=== PATIENT | male | born 1960 | race Caucasian/White ===

== ENCOUNTER 2020-12-12 11:43 | Emergency (ER) | payer BC ==
[2020-12-12 13:04] LABS: Basophils % 0.3 % (0-1.3); Hematocrit 43.6 % (39.6-49.0); Lymphocytes % 10.5 % (15.3-44.8); MPV 7.4 fL (7.6-11.3); RBC Red Blood Cell Count 4.93 M/uL (4.33-5.43)
[2020-12-12 13:24] LABS: BUN Blood Urea Nitrogen 17 mg/dL (7-18); Bicarbonate 26 mmol/L (21-32); Glucose Level 113 mg/dL (74-106); NT PRO-BNP 27 pg/mL (<125); Potassium 3.6 mmol/L (3.5-5.1); Sodium Level 141 mmol/L (136-145); Troponin (Emerg Dept Use Only) < 0.02 ng/mL (0.0-0.045)
--- NOTE | 2020-12-12 14:02 | EDPHYS ---
Physician Documentation [facility] Name: Rodney Victoria Age: 60 yrs Sex: Male : 1960 Arrival Date: 12/12/2020 Time: 11:47 Bed 25 Private MD: ED Physician Antolin Bond HPI: 12/12 13:47 This 60 yrs old Male presents to ER via EMS with complaints of syncope. rn 13:47 The patient has experienced syncope. Onset: The symptoms/episode began/occurred just rn prior to arrival. Duration: This was a single episode. Context: occurred at an office, occurred while the patient was at rest, Just prior to the episode the patient experienced lightheadedness. Associated injury: The patient did not suffer any apparent associated injury. Associated signs and symptoms: Pertinent positives: lightheadedness, Pertinent negatives: abdominal pain, chest pain, headache, seizure, shortness of breath. Current symptoms: Currently, the patient is not experiencing any symptoms. The patient has experienced similar episodes in the past. The patient has been recently seen by a physician:. Patient reports was status post prostate biopsy at Dr. Fernández office today. States was not given any systemic medication noted with only local lidocaine. Patient states almost every time he has had a procedure done in the office he has had a syncopal episode afterwards, told was vasovagal response. Today he was being monitored after the procedure in a seated position when felt lightheaded and felt the same thing about to happen, had a syncopal episode and woke up later. No seizure-like activity. Now back to baseline without any complaints. States had a recent cardiac work-up that was negative including negative stress test and this feels identical to multiple other vasovagal responses.. Historical: - Allergies: 11:54 No Known Allergies; vg1 - Home Meds: 11:54 losartan-hydrochlorothiazide oral [Active]; Protonix Oral [Active]; Cipro Oral vg1 [Active]; Flomax Oral [Active]; - PMHx: 11:54 Hypercholesterolemia; Hypertensive disorder; GERD; vg1 - PSHx: 11:54 LEEANNE Cornea; vg1 - Immunization history:: Adult Immunizations up to date, Client reports receiving the Natalio \T\ Natalio single-dose vaccine. - Social history:: Smoking status: Patient denies any tobacco usage or history of. - Family history:: not pertinent. - Hospitalizations: : No recent hospitalization is reported. ROS: 13:47 Constitutional: Negative for fever, chills, and weight loss, Eyes: Negative for injury, rn pain, redness, and discharge, Neck: Negative for injury, pain, and swelling, Cardiovascular: Negative for chest pain, palpitations, and edema, Respiratory: Negative for shortness of breath, cough, wheezing, and pleuritic chest pain, Abdomen/GI: Negative for abdominal pain, nausea, vomiting, diarrhea, and constipation, Back: Negative for injury and pain, MS/Extremity: Negative for injury and deformity, Skin: Negative for injury, rash, and discoloration, Neuro: Negative for headache, weakness, numbness, tingling, and seizure. Exam: 13:47 Constitutional: This is a well developed, well nourished patient who is awake, alert, rn and in no acute distress. Head/Face: Normocephalic, atraumatic. Eyes: Periorbital areas with no swelling, redness, or edema. Cardiovascular: Regular rate and rhythm. No pulse deficits. Respiratory: No increased work of breathing, no retractions or nasal flaring. Abdomen/GI: Soft, non-tender Skin: Warm, dry with normal turgor. Normal color with no rashes, no lesions, and no evidence of cellulitis. MS/ Extremity: Pulses equal, no cyanosis. Neurovascular intact. Full, normal range of motion. Equal circumference. Neuro: Awake and alert, GCS 15, oriented to person, place, time, and situation. Cranial nerves II-XII grossly intact. Motor strength 5/5 in all extremities. Sensory grossly intact. Cerebellar exam normal. 13:58 ECG was reviewed by the Attending Physician. rn Vital Signs: 11:43 BP 130 / 92; Pulse 65; Resp 12; Temp 97.6; Pulse Ox 100% ; Weight 86.18 kg; Height 5 vg1 ft. 5 in. (165.10 cm); Pain 0/10; 12:30 BP 123 / 95; Pulse 74; Resp 15; Pulse Ox 100% ; vg1 13:30 BP 126 / 83; Pulse 69; Resp 12; Pulse Ox 100% ; vg1 11:43 Body Mass Index 31.62 (86.18 kg, 165.10 cm) vg1 MDM: 11:59 Patient medically screened. rn 13:58 Differential Diagnosis: cardiac arrhythmia, idiopathic syncope, vasovagal episode. Data rn reviewed: vital signs, nurses notes, lab test result(s), EKG, and as a result, I will discharge patient. Data interpreted: residential monitor: rate is 69 beats/min, rhythm is normal sinus rhythm, regular, with no ectopy, Interpretation: normal rate, normal rhythm, Pulse oximetry: on room air is 100 %. Interpretation: normal. Counseling: I had a detailed discussion with the patient and/or guardian regarding: the historical points, exam findings, and any diagnostic results supporting the discharge/admit diagnosis, lab results, the need for outpatient follow up, to return to the emergency department if symptoms worsen or persist or if there are any questions or concerns that arise at home. Response to treatment: the patient's symptoms have markedly improved after treatment, the patient's symptoms have resolved after treatment, the patient's condition has returned to base line, the patient is now symptom free, and as a result, I will discharge patient. Special discussion: I discussed with the patient/guardian in detail that at this point there is no indication for admission to the hospital. It is understood, however, that if the symptoms persist or worsen the patient needs to return immediately for re-evaluation. 13:58 ED course: Back to baseline, has had multiple vasovagal episodes in the past following corner cutter. No acute findings here on ECG or blood work. Stable vital signs. Will DC home with return precautions.. 12/12 12:08 Order name: CBC with Diff; Complete Time: 13:29 rn 12/12 12:08 Order name: Basic Metabolic Panel; Complete Time: 13:29 rn 12/12 12:08 Order name: IV Start; Complete Time: 12:55 rn 12/12 12:08 Order name: EKG; Complete Time: 12:09 rn 12/12 12:08 Order name: Troponin (emerg Dept Use Only); Complete Time: 13:29 rn 12/12 12:08 Order name: BNP; Complete Time: 13:29 rn 12/12 12:08 Order name: EKG - Nurse/Tech; Complete Time: 13:27 rn 12/12 12:08 Order name: Cardiac monitoring; Complete Time: 12:16 rn 12/12 12:08 Order name: O2 Sat Monitoring; Complete Time: 12:16 rn EC:58 Rate is 68 beats/min. Rhythm is regular. QRS [place] is Normal. DC interval is normal. QRS rn interval is normal. QT interval is normal. No Q waves. T waves are Normal. No ST changes noted. Clinical impression: Normal ECG. Interpreted by me. Reviewed by me. Administered Medications: No medications were administered Disposition Summary: 12/12/20 14:01 Discharge Ordered Location: Home rn Problem: new rn Symptoms: are resolved rn Condition: Stable rn Diagnosis - Vasovagal syncope rn Followup: rn - With: Private Physician - When: As needed - Reason: Recheck today's complaints, Re-evaluation by your physician Discharge Instructions: - Discharge Summary Sheet rn - Syncope rn Forms: - Medication Reconciliation Form rn - Thank You Letter rn - Antibiotic pattern assembler - Prescription Opioid Use rn Signatures: Dispatcher [employer] Antolin Cordero MD MD rn Garcia, Victoria, RN RN vg1
--- NOTE | 2020-12-12 14:02 | ER ---
Nurse's Notes [facility] Name: Rodney Victoria Age: 60 yrs Sex: Male : 1960 Arrival Date: 12/12/2020 Time: 11:47 Bed 25 Private MD: Diagnosis: Vasovagal syncope Presentation: 12/12 11:43 Chief complaint: EMS states: Pt had a prostate biopsy today at Dr Fernández office. About vg1 an hour after procedure pt became diaphoretic, dizzy and passed out for a couple of minutes. Pt stated this wasn't the first time this has happened. Pt denies pain at this time, but states pressure near Left groin, stated 'feels like I need to urinate'. 11:43 Coronavirus screen: Vaccine status: Patient reports receiving the 1st dose of the Covid vg1 vaccine. Client denies travel out of the [place] in the last 14 days. Ebola Screen: Patient negative for fever greater than or equal to 101.5 degrees Fahrenheit, and additional compatible Ebola Virus Disease symptoms. Initial Sepsis Screen: Does the patient meet any 2 criteria? No. Patient's initial sepsis screen is negative. Does the patient have a suspected source of infection? No. Patient's initial sepsis screen is negative. Risk Assessment: Do you want to hurt yourself or someone else? Patient reports no desire to harm self or others. Onset of symptoms was December 12, 2020. 11:43 Method Of Arrival: EMS: [facility] vg1 11:43 Acuity: OFE 3 vg1 Triage Assessment: 11:54 General: Appears in no apparent distress. comfortable, Behavior is calm, cooperative. vg1 Pain: Complains of pain in pelvis Pain currently is 0 out of 10 on a pain scale. EENT: No signs and/or symptoms were reported regarding the EENT system. Neuro: Level of Consciousness is awake, alert, obeys commands, Oriented to person, place, time, situation. Cardiovascular: Patient's skin is warm and dry. Respiratory: Airway is patent Respiratory effort is even, unlabored. GI: No signs and/or symptoms were reported involving the gastrointestinal system. : Reports inability to void, pressure Denies pain. Derm: Skin is intact, is healthy with good turgor. Musculoskeletal: Circulation, motion, and sensation intact. Historical: - Allergies: 11:54 No Known Allergies; vg1 - Home Meds: 11:54 losartan-hydrochlorothiazide oral [Active]; Protonix Oral [Active]; Cipro Oral vg1 [Active]; Flomax Oral [Active]; - PMHx: 11:54 Hypercholesterolemia; Hypertensive disorder; GERD; vg1 - PSHx: 11:54 LEEANNE Cornea; vg1 - Immunization history:: Adult Immunizations up to date, Client reports receiving the Natalio \T\ Natalio single-dose vaccine. - Social history:: Smoking status: Patient denies any tobacco usage or history of. - Family history:: not pertinent. - Hospitalizations: : No recent hospitalization is reported. Screenin:00 Abuse screen: Denies threats or abuse. Nutritional screening: No deficits noted. vg1 Tuberculosis screening: No symptoms or risk factors identified. Fall Risk No fall in past 12 months (0 pts). No secondary diagnosis (0 pts). IV access (20 points). Ambulatory Aid- None/Bed Rest/Nurse Assist (0 pts). Gait- Normal/Bed Rest/Wheelchair (0 pts) Mental Status- Oriented to own ability (0 pts). Total Hartman Fall Scale indicates No Risk (0-24 pts). Assessment: 12:00 Reassessment: SEE TRIAGE. vg1 12:56 Reassessment: Patient appears in no apparent distress at this time. No changes from vg1 previously documented assessment. Patient and/or family updated on plan of care and expected duration. Pain level reassessed. Patient is alert, oriented x 3, equal unlabored respirations, skin warm/dry/pink. 13:55 Reassessment: Patient appears in no apparent distress at this time. No changes from vg1 previously documented assessment. Patient and/or family updated on plan of care and expected duration. Pain level reassessed. Patient is alert, oriented x 3, equal unlabored respirations, skin warm/dry/pink. Vital Signs: 11:43 BP 130 / 92; Pulse 65; Resp 12; Temp 97.6; Pulse Ox 100% ; Weight 86.18 kg; Height 5 vg1 ft. 5 in. (165.10 cm); Pain 0/10; 12:30 BP 123 / 95; Pulse 74; Resp 15; Pulse Ox 100% ; vg1 13:30 BP 126 / 83; Pulse 69; Resp 12; Pulse Ox 100% ; vg1 11:43 Body Mass Index 31.62 (86.18 kg, 165.10 cm) vg1 ED Course: 11:47 Patient arrived in ED. em1 11:51 Lisa Guerrero, COREY is Primary Nurse. vg1 11:54 Triage completed. vg1 11:59 Antolin Bond MD is Attending Physician. rn 12:00 Patient has correct armband on for positive identification. Placed in gown. Bed in low vg1 position. Call light in reach. Side rails up X 1. Adult w/ patient. 12:00 No provider procedures requiring assistance completed. vg1 12:01 Arm band placed on. vg1 12:56 Initial lab(s) drawn, by me, sent to lab. Inserted saline lock: 22 gauge in right vg1 antecubital area, using aseptic technique. Blood collected. 14:35 IV discontinued, intact, bleeding controlled, No redness/swelling at site. Pressure vg1 dressing applied. Administered Medications: No medications were administered Outcome: 14:01 Discharge ordered by . rn 14:35 Discharged to home ambulatory, with family. vg1 14:35 Condition: stable 14:35 Discharge instructions given to patient, family, Instructed on discharge instructions, follow up and referral plans. Demonstrated understanding of instructions, follow-up care. 14:35 Patient left the ED. vg1 Signatures: Antolin Bond MD MD rn Martinez, Eric em1 Lisa Guerrero RN RN vg1
[2020-12-12 14:44] VITALS: TEMP 97.6; O2SAT 100
[2020-12-12 14:46] VITALS: BP 126/83
[2020-12-12] MEDS ORDERED: NA CHLORIDE 0.9% 500 ML ONE (16:31)
--- OUTSIDE RECORDS SUMMARY | 2020-12-21 11:39 | XMS REPORT | Continuity of Care Document ---
:1960 Author Organization [facility] t Address [address] [place] [address] Care Team Providers Name Role Phone Hunter VILLA Attending Clinician Payers Payer Name Policy Type Policy Number Effective Date Expiration Date S ource Problems Condition Condition Condition Status Onset Resolution Last Treating Co mments Source Name Details Category Date Date Treatment Clinician Date No known No known Disease [facility] active active College problems problems of Medicin e Allergies, Adverse Reactions, Alerts This patient has no known allergies or adverse reactions. Social History Social Habit Start Date Stop Date Quantity Comments Source Alcohol intake [facility] lege [facility] Alcohol Comment social [facility] Co llege [facility] Sex Assigned At [facility] Smoking Status Start Date Stop Date Source Former smoker 2018-11-18 00:00:00 2018-11-18 00:00:00 [facility] Ordered Filled Start Stop Current Ordering Indication Dosage Frequency Signature Comments Components Source Medication Medication Date Date Medication? Clinician (SIG) Name Name Atorvastati 2018-02 Yes Take by Ever pagan n Calcium 0-11 mouth. Enigma (LIPITOR 18:01: of OR) 45 Medicin e Pantoprazol 2018-02 Yes Take by Ever brownor e Sodium 0-11 mouth. Enigma (PROTONIX 18:01: of OR) 45 Medicin e losartan-hy 2018-02 Yes 1{tbl} Take 1 Tab [facility] drochloroth 0-11 by mouth Reinier ege iazide 18:01: daily. of (HYZAAR) 45 Medicin 50-12.5 MG e per tablet Procedures This patient has no known procedures. Plan of Care Planned Activity Planned Date Details Comments Source Future Scheduled AL DESTRUC Ordered: [facility] Reinier quinn of Test PREMALIGNANT, FIRST 11/18/2018 Medicine LESION([id number]) [code = 67022] Future Scheduled AL DESTRUC Ordered: [facility] ege of Test PREMALIGNANT,2-14 11/18/2018 Medicine LESIONS([id number]) [code = 39690] Future Scheduled AL DESTRUCTION Ordered: [facility] llege of Test BENIGN LESIONS UP TO 11/18/2018 Medicin e 14([id number]) [code = 84642] Future Scheduled COLON CANCER [facility] ege of Test SCREENING: Medicine COLONOSCOPY [code = COLON CANCER SCREENING: COLONOSCOPY] Future Scheduled TETANUS SHOT (ADULT) [facility] of Test [code = TETANUS SHOT Medicin e (ADULT)] Future Scheduled BMI FOLLOW UP PLAN [facility] of Test [code = BMI FOLLOW Medicine UP PLAN] Future Scheduled HEPATITIS C [facility] ege of Test SCREENING [code = Medicine HEPATITIS C SCREENING] Future Scheduled HIV SCREENING [code [facility] or College of Test = HIV SCREENING] Medicine Future Scheduled FLU VACCINE > 6 [facility] ollege of Test MONTHS [code = FLU Medicine VACCINE > 6 MONTHS] Encounters Start End Encounter Admission Attending Care Care Encounter Source Date/Time Date/Time Type Type Clinicians Facility Department ID 2018-11-18 2018-11-18 Office Leena Harrison [id number] [facility] 12:48:02 14:14:54 Visit AMBULATOR [id number] College Y [id number] of [id number] Medi tim 300 e Results This patient has no known results.
== END 2020-12-12 14:35 | disposition home or self-care (01) ==
LOC: ER 11:43
DX: R55 Syncope and collapse (principal); I10 Essential (primary) hypertension; E78.00 Pure hypercholesterolemia, unspecified
CPT/HCPCS: 85025; 80048; 36415; 84484; 83880; 99283; J7040

== ENCOUNTER 2021-01-14 09:23 | Day surgery (SDC) | payer BC ==
[2021-01-09 14:50] LABS: Absolute Lymphocytes (CBC) 1.3 K/uL (0.7-4.9); Basophils % 0.7 % (0-1.3); Hematocrit 40.6 % (39.6-49.0); Lymphocytes % 23.1 % (15.3-44.8); MPV 7.5 fL (7.6-11.3); RBC Red Blood Cell Count 4.61 M/uL (4.33-5.43)
[2021-01-09 14:52] LABS: Protime INR 0.97
--- NOTE | 2021-01-09 14:53 | RAD REPORT ---
EXAM DESCRIPTION: RAD - Chest Pa And Lat (2 Views) - 01/09/2021 2:26 pm CLINICAL HISTORY: Pre Op pending TURP COMPARISON: No comparisons FINDINGS: Lines: None. Lungs: No evidence of edema or pneumonia. Pleural: No significant pleural effusions or pneumothorax. Cardiac: The heart size is within normal limits. Bones: No acute fractures. Other: IMPRESSION: No acute cardiopulmonary disease.
[2021-01-09 15:20] LABS: Potassium 3.9 mmol/L (3.5-5.1)
[~2021-01-14 09:23] MED LIST: AMPICILLIN SODIUM 2 GM in NA CHLORIDE 0.9% 100 ML IVPB SCH
[2021-01-14] MEDS ORDERED: dexAMETHasone 10 MG/ML VIAL ONE (11:01)
[2021-01-14] MEDS ORDERED: FENTANYL CITR 100 MCG/2 ML ONE (11:01)
[2021-01-14] MEDS ORDERED: KETOROLAC 30 MG/ML INJ ONE (11:01)
[2021-01-14] MEDS ORDERED: propofoL 200 MG/20 ML VIAL IV ONE ×2 (11:01→12:01)
[2021-01-14] MEDS ORDERED: MIDAZOLAM HCL 2 MG/2 ML INJ ONE (11:01)
[2021-01-14] MEDS ORDERED: LIDOCAINE 1% MPF 5 ML VIAL ONE (11:02)
[2021-01-14] MEDS ORDERED: ONDANSETRON 4 MG/2 ML VIAL ONE (11:02)
[2021-01-14] MEDS ORDERED: ROCURONIUM 50 MG/5 ML VIAL IV ONE (11:02)
[2021-01-14] MEDS ORDERED: NEOSTIGMINE 1 MG/ML -5 ML ONE (12:53)
[2021-01-14] MEDS ORDERED: GLYCOPYRROLATE 0.2 MG/ML SYR ONE (12:53)
[2021-01-14] MEDS ORDERED: CODEINE 30MG/APAP 300MG TAB PO PRN (14:19)
[2021-01-14] MEDS ORDERED: OPIUM/BELLADONNA SUPPOS (30-16.2 MG) PR ONE (14:19)
[2021-01-14] MEDS ORDERED: PHENAZOPYRIDINE 100MG TAB PO ONE ×2 (14:19→14:56)
[2021-01-14 14:49] VITALS: BP 133/83; TEMP 98; O2SAT 98
[2021-01-14] MEDS ORDERED: CODEINE 30MG/APAP 300MG TAB ONE (14:56)
--- NOTE | 2021-01-14 19:24 | OP ---
Date of Procedure: 01/14/2021 Surgeon: ELEONORA SUAREZ Preoperative Diagnoses: 1.Benign prostatic hypertrophy with lower urinary tract symptoms. 2.Elevated PSA. Postoperative Diagnoses: 1.Benign prostatic hypertrophy with lower urinary tract symptoms. 2.Elevated PSA. Principle Procedure: Bipolar transurethral resection of the prostate. Indication For Procedure: Mr. Victoria is a 60-year-old gentleman who presented to the Urology Clinic with an elevated PSA and underwent a prostate biopsy with no malignancy found. He had bothersome obs tructive urinary symptoms secondary to an intravesically projecting median lobe that abutted the uret eral orifices associated with bilateral lateral lobar hypertrophy. After the biopsy confirmed absenc e of any significant malignancy and with the other indication suggestive of active inflammation in hi s prostate, he elected to proceed with surgical therapy to rid him from having to take the Flomax. Procedure In Detail: The patient was consented in the preoperative holding area before being transfe rred to operative suite where general anesthesia was induced. He was given ampicillin 2 g and gentam icin 200 mg IV antimicrobial prophylaxis. Pneumo boots were provided for DVT prophylaxis. He was pl aced in the lithotomy position, padded and secured to the table appropriately. His genitalia were pr epped using Hibiclens and he was draped in standard fashion. The case was begun using urethral sound s to dilate the meatus and fossa navicularis to 30-Paraguayan. Then, using the 26-Paraguayan resectoscope an d a visual obturator, the urethra was traversed and the bladder entered. The bladder was briefly carmine veyed, and there were no papillary mucosal lesions, foreign bodies or stones immediately noted. As p reviously noted on the outpatient evaluation, there was a median lobe intravesically projecting and a butting the ureteral orifices. As a result, utilizing the bipolar resectoscope loop, I began resecti ng the median lobe with the ureteral orifice in direct vision on the right side before doing a simila r procedure on the left side. Remainder of the median lobe was resected until it was smooth with a b ladder neck. Then I continued resecting the remainder of the median bar down to the level of the irma umontanum. Once this was done, I then began resection of a component of the lateral lobar hypertroph y on each side until a nice trough was created from the verumontanum into the bladder. Once this was confirmed, I then carefully fulgurated any and all bleeding vessels and [place] evacuated all prostate urethral chips from within the bladder. Again, I fulgurated any residual ooze from within the prost atic lumen before leaving his bladder full and retracting the resectoscope. I then placed a 22-Frenc h 3-way Kuo catheter into his bladder with ease and I placed 40 cc of sterile water in the balloon. The patient was then taken out of the lithotomy position, and the catheter was placed to moderate t raction. CBI was initiated at slow drip and the urine was clear. The patient was then awakened from general anesthesia, transferred to a stretcher, and then transferred to the recovery room in good co ndition. Complications: None. Discharge Disposition: The patient should follow up in the Urology Clinic in about 2 to 3 weeks' amilcar e to discuss the results of the pathology of the prostatic urethral chips. He will be instructed on how to remove the catheter himself at home on , but if for some reason, he is uncomfortable d oing that, he may contact the office and request for us to do it for him. ROMEO/ETELVINA Voice ID: [id number] Report ID: [id number]
== END 2021-01-14 16:15 | disposition home or self-care (01) ==
LOC: OR 09:23
PROVIDERS: ATTEND Urology
PROC: 0VT08ZZ Resection of Prostate, Via Natural or Artificial Opening Endoscopic (ICD-10-PCS; principal; 2021-01-14 10:30)
DX: N40.1 Benign prostatic hyperplasia with lower urinary tract symptoms (principal); R97.20 Elevated prostate specific antigen [PSA]; Z20.822 Contact with and (suspected) exposure to COVID-19
CPT/HCPCS: 93005; 85025; 87086; 80048; 36415; 85610; 88305; 71046; 52601; U0003; J2704 ×2; J2250; J3010; J1100; J2710; J2405; J0290; 87088

== ENCOUNTER 2024-03-23 10:43 | Inpatient (IN) | payer BC ==
--- OUTSIDE RECORDS SUMMARY | 2024-03-23 10:45 | XMS REPORT | Continuity of Care Document ---
Author Name Unknown Address [address] [facility] [address] [place] [address] [facility] thconnect Address [address] 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 Role Phone Pcp, Patient Does Not Have A Primary Care Physic brunilda WENDI GLORIA Attending Clinician Unavail able Nurse, Adc Pob Immunization Attending Clinician Unavailable Wendi Gloria DO Attending Clinician Payers Payer Name Policy Type Policy Number Effective Date Expirati on Date Source 6 [id number] 2017 00:00:00 [facility] [employer] [facility] - OUT OF STATE [id number] 00:00:00 Problems Condition Name Condition Details Condition Category Status Onset Date Resolution Date Last Treatment Date Treating Clinician Comments Source Allergic rhinitis Allergic rhinitis Disease Active 02-27 00:00: 00 [facility] GERD (gastroeso phageal reflux disease) GERD (gastroeso phageal reflux disease) Disease Active 02-27 00:00: 00 [facility] Hyperlipem ia, mixed Hyperlipem ia, mixed Disease Active 02-27 00:00: 00 [facility] Essential hypertensi on, benign Essential hypertensi on, benign Disease Active 02-27 00:00: 00 [facility] Hiatal hernia Hiatal hernia Disease Active 02-27 00:00: 00 [facility] Shingles Shingles Disease Active 02-27 00:00: 00 [facility] Diverticul osis Diverticul osis Disease Active 02-27 00:00: 00 [facility] Vitamin D deficiency Vitamin D deficiency Disease Active 02-27 00:00: 00 Overview: Formattin g of this note might be different from the original. 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 [facility] Actinic keratosis Actinic keratosis Disease Active 02-27 00:00: 00 [facility] Rosacea Rosacea Disease Active 02-27 00:00: 00 [facility] [id number] S/P TURP Problem Commo n [facility] [id number] BPH loc w urin obs/LUTS Problem [facility] [id number] High grade prostatic intraepith elial neoplasia Problem [facility] Lower urinary tract symptoms due to benign prostatic hypertroph y Enlarged prostate with lower urinary tract symptoms Problem [facility] [id number] Complicate d UTI (urinary tract infection) Problem [facility] [id number] PSA elevation Problem [facility] Allergies, Adverse Reactions, Alerts Allergy Name Allergy Type Status Severity Reaction(s) Onset Date Inactive Date Treating Clinician Comments Source NO KNOWN ALLERGIE S Drug Class Active [facility] Social History Social Habit Start Date Stop Date Quantity Comments Source History of Tobacco Use [facility] Sex Assigned At [facility] History SDOH Alcohol Frequency [facility] History SDOH Alcohol Std Drinks [facility] History SDOH Alcohol Binge [facility] Alcohol intake 2017-06-14 00:00:00 2017-06-14 00:00:00 Current drinker of alcohol (finding) [facility] Alcohol Comment 2016-05-21 00:00:00 2016-05-21 00:00:00 socially [facility] Smoking Status Start Date Stop Date Source Never Smoker [facility] Medications Ordered Medication Name Filled Medication Name Start Date Stop Date Current Medication? Ordering Clinician Indication Dosage Frequency Signature (SIG) Comments Components Source Gentamicin 80mg Gentamicin 80mg 2020-02 00:00: 00 No 240mg [facility] pantoprazol e 20 mg EC tablet 05-31 00:00: 00 Yes [id number] 20mg Take 1 tablet by mouth daily. [facility] atorvastati n 40 mg tablet 05-31 00:00: 00 Yes [id number] 40mg Take 1 tablet by mouth at bedtime. [facility] aspirin 81 mg chewable tablet 10-15 11:29: 07 Yes 81mg Take 81 mg by mouth daily. [facility] Cholecalcif kurtis, Vitamin D3, (VITAMIN D3) 2,000 unit Cap 10-15 11:29: 07 Yes 1{capsu le} Take 1 Cap by mouth daily. Pt is taking half a tab QD [facility] ascorbic acid (VITAMIN C) 500 mg tablet 10-15 11:29: 07 Yes 500mg Take 500 mg by mouth. [facility] fluticasone 50 mcg/actuati on nasal spray 10-15 00:00: 00 Yes [id number] 1 spray each nostril twice a day for 5 days then daily [facility] Vitamin C 500 MG Vitamin C 500 MG No 1{table t} QD Vitamin C 500 MG Pantoprazol e Sodium 40 MG Pantoprazol e Sodium 40 MG No 1{table t} QD Pantoprazo le Sodium 40 MG Vitamin D3 [id number] UNIT/GM Vitamin D3 [id number] UNIT/GM No Vitamin D3 [id number] UNIT/GM Losartan Potassium-H CTZ 50-12.5 MG Losartan Potassium-H CTZ 50-12.5 MG No 1{table t} QD Losartan Potassium- HCTZ 50-12.5 MG Lipitor 40 MG Lipitor 40 MG No 1{table t} QD Lipitor 40 MG Aspirin 81 81 MG Aspirin 81 81 MG No 1{table t} QD Aspirin 81 81 MG Niacin 500 MG Niacin 500 MG No 1{table t_with_ food} QD Niacin 500 MG Vital Signs Vital Name Observation Time Observation Value Comments S jayden height 2022-09-16 11:45:00 64 [in_i] Commo n [facility] weight 2022-09-16 11:45:00 199.6 [lb_av] Co mmon [facility] temperature 2022-09-16 11:45:00 97.9 [degF] Com mon [facility] bmi 2022-09-16 11:45:00 34.26 kg/m2 Comm on [facility] oximetry 2022-09-16 11:45:00 98 % Commo n [facility] respiratory rate 2022-09-16 11:45:00 18 /min [facility] blood pressure systolic 2022-09-16 11:45:00 133 mm[Hg] [facility] blood pressure diastolic 2022-09-16 11:45:00 83 mm[Hg] [facility] Procedures Procedure Date / Time Performed Performing Clinicia n Source SARS-COV-2 COVID-19 VACCINE,0.3ML,IM (PFIZER) 2021-01-07 21:32:02 Doctor Unassigned, Hart[place] [facility] Encounters Start Date/Time End Date/Time Encounter Type Admission Type Attending [facility] Care Facility Care Department Encounter ID Source 2022-09-16 11:15:00 [facility] [id number] [facility] 2023-11-05 11:15:50 2023-11-05 11:15:50 Outpatient SFA SFA [id number] Messi Chambers 2022-11-11 15:07:32 2022-11-11 15:07:32 Outpatient SFA SFA [id number] Messi Garber Reyes 2022-09-16 00:00:00 2022-09-16 00:00:00 OFFICE VISIT ESTAB PT LEVEL 2 STLMLC STLC [id number] [facility] 2021-01-07 13:20:00 2021-01-07 13:20:00 Outpatient WENDI IVERSON [facility] [id number] [facility] 2021-01-07 12:57:52 2021-01-07 12:58:26 Imm/Inj Visit Nurse, Homa Rosen Immunizatio Wendi Cole [facility] [id number] [facility]
--- NOTE | 2024-03-23 11:13 | RAD REPORT ---
EXAM: CT brain without contrast HISTORY: STROKE ALERT COMPARISON: None TECHNIQUE: Multiple contiguous axial images were obtained and a CT of the brain without contrast. Sag ittal and coronal reformats were performed. One or more of the following dose reduction techniques were used: Automated exposure control, adjust ment of the mA and/or kV according to patient size, and/or iterative reconstruction. FINDINGS: No evidence of hydrocephalus, intracranial hemorrhage, or extra-axial fluid collection. The brain is normal in morphology. No evidence of midline shift or areas of brain edema. The calvarium is intact. The visualized paranasal sinuses and mastoid air cells are essentially clear . IMPRESSION: No evidence of acute intracranial abnormality. The findings were communicated with Dr. Emmanuel at 03/23/2024 11:10 AM by telephone.
[2024-03-23 11:28] LABS: Absolute Basophils 0.1 K/uL (0-0.5); Absolute Eosinophils 0.3 K/uL (0-0.5); Absolute Lymphocytes (CBC) 1.4 K/uL (0.7-4.9); Absolute Monocytes 0.5 K/uL (0.1-1.3); Absolute Neutrophil 5.8 K/uL (1.8-8.0); Basophils % 0.6 % (0-1.3); Eosinophils % 3.2 % (0-4.4); Hematocrit 45.8 % (39.6-49.0); Lymphocytes % 17.9 % (15.3-44.8); MCH 30.6 pg (27.0-35.0); MCHC 34.9 g/dL (32.0-36.0); MCV 87.8 fL (80-100); MPV 7.6 fL (7.6-11.3); Monocytes % 6.7 % (3.3-12.3); Neutrophils % 71.6 % (41.7-73.7); Nucleated Red Blood Cells % 0.1 % (0-0); Platelets 224 thou/uL (152-406); RBC Red Blood Cell Count 5.21 M/uL (4.33-5.43); Red Cell Distribution Width 13.6 % (12.1-15.2)
[2024-03-23 11:37] LABS: PT Prothrombin Time 10.6 SECONDS (9.4-12.5); PTT, Activated Partial Thromb 21.9 SECONDS (24.3-36.9); Protime INR 1.01
--- NOTE | 2024-03-23 11:55 | RAD REPORT ---
EXAMINATION: CTA HEAD CLINICAL INDICATION: EUGENE Goodwin TECHNIQUE: Axial CT images were obtained through the head after intravenous contrast utilizing angiog raphic protocol with 3D post-processing (maximum intensity projection images, volume rendered images and/or shaded surface rendered images). One or more of the following dose reduction technique s were used: Automated exposure control, adjustment of the mA and/or kV according to patient size, and/or iterative reconstruction. Unless otherwise specified, incidental findings do not require dedic ated imaging follow-up. COMPARISON: No prior exam. FINDINGS: ICA: The petrous, cavernous, and supraclinoid segments of the bilateral internal carotid arteries are normal. The ophthalmic artery origins are visualized and normal. The posterior communicating arteries are patent. JOSELYN: Anterior cerebral arteries are normal bilaterally. The anterior communicating artery is patent. MCA: Middle cerebral arteries are normal bilaterally. SHIFT SUPERVISOR RN: Posterior cerebral arteries are normal bilaterally. Vertebrobasilar: The vertebral arteries are patent. The basilar artery is normal in appearance. 3D images confirm these findings. IMPRESSION: No significant flow abnormality is identified.
--- NOTE | 2024-03-23 11:57 | RAD REPORT ---
EXAMINATION: CTA NECK CLINICAL INDICATION: RUE weakness TECHNIQUE: Axial CT images were obtained from the aortic arch to the skull base after intravenous con trast utilizing angiographic protocol with 3D post-processing (maximum intensity projection images, volume rendered images and/or shaded surface rendered images). One or more of the following dose redu ction techniques were used: Automated exposure control, adjustment of the mA and/or kV according to patient size, and/or iterative reconstruction. Unless otherwise specified, incidental findings do not require dedicated imaging follow-up. COMPARISON: Recent MAINTENANCE OF WAY CLERK imaging reviewed FINDINGS: AORTA: Not well imaged. CCA: The common carotid arteries are patent and normal in caliber. ICA/ECA: Small hard plaque is seen right carotid bulb. Small soft plaque also present left carotid bu lb. These findings do not result in a significant carotid stenosis. VERTEBRAL: The cervical vertebral arteries are patent. The vertebral arteries are codominant. SOFT TISSUE: No significant neck soft tissue abnormalities. The visualized lung apices are clear. 3D images confirm these findings. IMPRESSION: No significant flow abnormality of the neck vessels is identified. Mild carotid bulb plaquing as deta iled. NASCET criteria used. Mild 0-49% stenosis Moderate 50-69% stenosis Severe 70-99% stenosis
--- NOTE | 2024-03-23 11:58 | RAD REPORT ---
EXAMINATION: ONE VIEW CHEST XR CLINICAL INDICATION: stroke w/u TECHNIQUE: Frontal chest projection is submitted. Examination is limited by patient positioning and t echnique. COMPARISON: 01/09/2021 FINDINGS: Lungs are underinflated resulting in vascular crowding. No focal infiltrate. The heart is normal in s ize. No displaced fractures identified.
[2024-03-23 12:06] LABS: Anion Gap 9.2 mEq/L (5.0-15.0); Potassium 4.2 mEq/L (3.5-5.1); Troponin High Sensitivity 3.2 pg/mL (<58.9)
--- NOTE | 2024-03-23 12:10 | ER ---
Nurse's Notes [facility] Name: Rodney Victoria Age: 63 yrs Sex: Male : 1960 Arrival Date: 03/23/2024 Time: 10:43 Bed 6 Private MD: Diagnosis: Right Upper Extremity Weakness Presentation: 03/23 10:50 Chief complaint: Patient states: Noticed R arm weakness and numbness when he awoke at 8 ll1 AM. Went to bed normal at 11 PM last night. Gait steady. Sent in for further evaluation by Dr. Carmona. Coronavirus screen: Client denies travel out of the [place] in the last 14 days. At this time, the client does not indicate any symptoms associated with coronavirus-19. Ebola Screen: Patient denies travel to an Ebola-affected area in the 21 days before illness onset. Initial Sepsis Screen: Does the patient meet any 2 criteria? No. Patient's initial sepsis screen is negative. Does the patient have a suspected source of infection? No. Patient's initial sepsis screen is negative. Risk Assessment: Do you want to hurt yourself or someone else? Patient reports no desire to harm self or others. Onset of symptoms was March 22, 2024. 10:50 Method Of Arrival: Ambulatory ll1 10:50 Acuity: OFE 2 ll1 Triage Assessment: 10:54 General: Appears in no apparent distress. Behavior is calm, cooperative, appropriate ll1 for age. Pain: Denies pain. Musculoskeletal: Circulation, motion, and sensation intact. Capillary refill < 3 seconds, having trouble grasping and holding objects with R arm. Reports weakness in right arm numbness in right arm. Historical: - Allergies: 10:44 No Known Allergies; ll1 - PMHx: 10:44 GERD; Hypercholesterolemia; Hypertensive disorder; ll1 - PSHx: 10:44 LEEANNE Cornea; ll1 - Immunization history:: Adult Immunizations up to date. - Infectious Disease History:: Denies. - Social history:: Smoking status: Patient denies any tobacco usage or history of. Screenin:07 [facility] ED Fall Risk Assessment (Adult) History of falling in the last 3 months, kc6 including since admission No falls in past 3 months (0 pts) Confusion or Disorientation No (0 pts) Intoxicated or Sedated No (0 pts) Impaired Gait No (0 pts) Mobility Assist Device Used No (0 pt) Altered Elimination No (0 pt) Score/Fall Risk Level 0 - 2 = Low Risk Oriented to surroundings, Maintained a safe environment, Educated pt \T\ family on fall prevention, incl call for assistance when getting out of bed. Abuse screen: Denies threats or abuse. Denies injuries from another. Nutritional screening: No deficits noted. Tuberculosis screening: No symptoms or risk factors identified. 11:07 VAN Screening: Arm Drift: Minor drift. Visual Disturbance: No visual disturbance noted. kc6 Aphasia: No aphasia noted. Neglect: No neglect noted. 11:30 [place] Swallow Protocol Brief Cognitive Screen What is your name? Normal, Where are you kc6 right now? Normal, What year is it? Normal. Oral Mechanism Examination Facial Symmetry: Normal, Motion: Normal, Lip Closure: Normal, Oral Mechanism Result: Normal. 3 oz Water Swallow Challenge: Pt able to drink all water without stopping, coughing, choking or throat clearing: Yes Result: PASS MD Notified: Saad Martell MD. Assessment: 10:50 General: Code stroke called overhead. ph 11:07 General: Appears in no apparent distress. comfortable, well groomed, well developed, kc6 Behavior is cooperative, appropriate for age, anxious, crying. Pain: Denies pain. Neuro: Level of Consciousness is awake, alert, obeys commands, Oriented to person, place, time, situation, Appropriate for age Chronometer Adjuster are weak on right Moves all extremities. Full function Weakness in right arm(s) Gait is steady, Speech is normal, Facial symmetry appears normal, Facial symmetry: tongue is midline, Pupils are PERRLA, Numbness in right arm Babinski is positive. Cardiovascular: Capillary refill < 3 seconds. Respiratory: Airway is patent Trachea midline Respiratory effort is even, unlabored, Respiratory pattern is regular, symmetrical. GI: No signs and/or symptoms were reported involving the gastrointestinal system. : No signs and/or symptoms were reported regarding the genitourinary system. EENT: No signs and/or symptoms were reported regarding the EENT system. Derm: No signs and/or symptoms reported regarding the dermatologic system. Skin is intact, is healthy with good turgor, Skin is pink, warm \T\ dry. Musculoskeletal: Circulation, motion, and sensation intact. Range of motion: intact in all extremities. 12:43 Reassessment: Patient appears in no apparent distress at this time. No changes from kc6 previously documented assessment. Patient and/or family updated on plan of care and expected duration. Pain level reassessed. Patient is alert, oriented x 3, equal unlabored respirations, skin warm/dry/pink. Patient states feeling better. Patient states symptoms have improved. 13:48 Reassessment: Patient appears in no apparent distress at this time. No changes from kc6 previously documented assessment. Patient and/or family updated on plan of care and expected duration. Pain level reassessed. Patient is alert, oriented x 3, equal unlabored respirations, skin warm/dry/pink. 14:38 Reassessment: Patient appears in no apparent distress at this time. No changes from kc6 previously documented assessment. Patient and/or family updated on plan of care and expected duration. Pain level reassessed. Patient is alert, oriented x 3, equal unlabored respirations, skin warm/dry/pink. 15:38 Reassessment: Patient appears in no apparent distress at this time. No changes from kc6 previously documented assessment. Patient and/or family updated on plan of care and expected duration. Pain level reassessed. Patient is alert, oriented x 3, equal unlabored respirations, skin warm/dry/pink. Vital Signs: 10:50 BP 156 / 104; Pulse 88; Resp 17; Temp 97.6; Pulse Ox 98% on R/A; Weight 88.45 kg; ll1 Height 5 ft. 6 in. ; Pain 0/10; 11:32 BP 130 / 85; Pulse 75; Resp 16 S; Pulse Ox 99% on R/A; kc6 12:43 BP 132 / 82; Pulse 85; Resp 16; Pulse Ox 99% ; kc6 13:48 BP 124 / 86; Pulse 80; Resp 18 S; Pulse Ox 100% on R/A; kc6 10:50 Body Mass Index 31.47 (88.45 kg, 167.64 cm) ll1 10:50 Pain Scale: Adult ll1 NIH Stroke Scale Scores: 10:50 NIHSS Score: 2 ec2 11:07 NIHSS Score: 1 kc6 ED Course: 10:44 Patient arrived in ED. mr 10:44 Saad Martell MD is Attending Physician. ec2 10:44 Arm band placed on Patient placed in an exam room, on a stretcher. ll1 10:53 Triage completed. ll1 11:01 CT Stroke Brain w/o Contrast In Process Unspecified. EDMS 11:07 Missed attempt(s): 20 gauge in left upper arm. Missed attempt(s): 22 gauge in right kc6 antecubital area. Inserted saline lock: 20 gauge in left antecubital area, using aseptic technique. Blood collected. Flushed with 10 mL NS. Patient maintains SpO2 saturation greater than 95% on room air. 11:18 CT Head Angio In Process Unspecified. EDMS 11:19 CT Neck Angio In Process Unspecified. EDMS 11:25 Stroke CXR 1 View In Process Unspecified. EDMS 11:29 Whitney Kern, RN is Primary Nurse. kc6 11:30 Patient has correct armband on for positive identification. Bed in low position. Call [facility] light in reach. Side rails up X2. Adult w/ patient. photographs curator on. Pulse ox on. NIBP on. Door closed. Noise minimized. Lights dimmed. Warm blanket given. Pillow given. 11:30 EKG done, by ED staff, reviewed by Saad Martell MD. [facility] 12:09 Renita Ardon is Hospitalizing Provider. ec2 15:38 No provider procedures requiring assistance completed. Patient admitted, IV remains in [facility] place. Administered Medications: No medications were administered Medication: 15:38 VIS not applicable for this client. [facility] Outcome: 12:09 Decision to Hospitalize by Provider. ec2 15:38 Admitted to ER Hold. Please see [facility] for further documentation. [facility] 15:38 Condition: stable 15:38 Instructed on the need for admit, 18:18 Patient left the ED. [facility] NIH Stroke Scale - NIH Stroke Score Date: 03/23/2024 Time: 10:50 Total Score = 2 10. Dysarthria (speech clarity - read or repeat words) - 0(Normal) 11. Extinction and Inattention (visual/tactile/auditory/spatial/personal) - 0(No abnormality) 1a. Level of Consciousness (LOC) - 0(Alert) 1b. Level of Consciousness (LOC) (Month \T\ Age) - 0(Both) 1c. LOC Commands (Open \T\ Closes Eyes/Warehouse Helper) - 0(Both) 2. Best Gaze (Lateral Gaze Paresis) - 0(Normal) 3. Visual Field Loss - 0(No visual loss) 4. Facial Palsy - 0(Normal) 5a. Left Arm: Motor (10-second hold) - 0(No drift) 5b. Right Arm: Motor (10-second hold) - 1(Drift) 6a. Left Leg: Motor (5-second hold - always test supine) - 0(No drift) 6b. Right Leg: Motor (5-second hold - always test supine) - 0(No drift) 7. Limb Ataxia (finger/nose \T\ heel/sanderson - test with eyes open) - 1(Present in one limb) 8. Sensory Loss (pinprick arms/legs/face) - 0(Normal) 9. Best Language: Aphasia (description/naming/reading) - 0(No aphasia) Initials: ec2 NIH Stroke Scale - NIH Stroke Score Date: 03/23/2024 Time: 11:07 Total Score = 1 10. Dysarthria (speech clarity - read or repeat words) - 0(Normal) 11. Extinction and Inattention (visual/tactile/auditory/spatial/personal) - 0(No abnormality) 1a. Level of Consciousness (LOC) - 0(Alert) 1b. Level of Consciousness (LOC) (Month \T\ Age) - 0(Both) 1c. LOC Commands (Open \T\ Closes Eyes/Warehouse Helper) - 0(Both) 2. Best Gaze (Lateral Gaze Paresis) - 0(Normal) 3. Visual Field Loss - 0(No visual loss) 4. Facial Palsy - 0(Normal) 5a. Left Arm: Motor (10-second hold) - 0(No drift) 5b. Right Arm: Motor (10-second hold) - 1(Drift) 6a. Left Leg: Motor (5-second hold - always test supine) - 0(No drift) 6b. Right Leg: Motor (5-second hold - always test supine) - 0(No drift) 7. Limb Ataxia (finger/nose \T\ heel/sanderson - test with eyes open) - 0(Absent) 8. Sensory Loss (pinprick arms/legs/face) - 0(Normal) 9. Best Language: Aphasia (description/naming/reading) - 0(No aphasia) Initials: kc6 Signatures: Dispatcher [employer] EDOK Anne Anaya, Reg Reg mr Fide Alvarado, RN RN ph Lucila Barriga, RN RN ll1 Whitney Kern, RN RN kc6 Saad Martell MD MD ec2
--- NOTE | 2024-03-23 12:10 | EDPHYS ---
Physician Documentation [facility] Name: Rodney Victoria Age: 63 yrs Sex: Male : 1960 Arrival Date: 03/23/2024 Time: 10:43 Bed 6 Private MD: ED Physician Saad Martell HPI: 03/23 10:50 This 63 yrs old Male presents to ER via Unassigned with complaints of Right ec2 arm weakness. 10:50 Patient arrives today for evaluation of right upper extremity weakness. Patient reports ec2 that he went to bed at approximately 11:30 PM feeling normal, woke up with right upper extremity weakness. States that he is unable to write with a pen. Also reports numbness in the right upper extremity. Reports no previous stroke history. Reports history of hypertension and hyperlipidemia. Patient reports no blood thinners.. Historical: - Allergies: 10:44 No Known Allergies; ll1 - PMHx: 10:44 GERD; Hypercholesterolemia; Hypertensive disorder; ll1 - PSHx: 10:44 LEEANNE Cornea; ll1 - Immunization history:: Adult Immunizations up to date. - Infectious Disease History:: Denies. - Social history:: Smoking status: Patient denies any tobacco usage or history of. ROS: 10:50 Constitutional: as per hpi ec2 Exam: 10:50 Constitutional: GEN: NAD Head: atraumatic Eyes: EOMI Ears: External ears are ec2 normal. CV: regular rate LUNGS: no respiratory distress ABD: non-distended SKIN: no evidence of rashes MSK: no evidence of trauma. Neuro: Cranial nerves II through XII intact, right upper extremity with weakness compared to left, dysmetria with right upper extremity as well. bilateral lower extremity with intact strength and sensation. Vital Signs: 10:50 BP 156 / 104; Pulse 88; Resp 17; Temp 97.6; Pulse Ox 98% on R/A; Weight 88.45 kg; ll1 Height 5 ft. 6 in. ; Pain 0/10; 11:32 BP 130 / 85; Pulse 75; Resp 16 S; Pulse Ox 99% on R/A; kc6 12:43 BP 132 / 82; Pulse 85; Resp 16; Pulse Ox 99% ; kc6 13:48 BP 124 / 86; Pulse 80; Resp 18 S; Pulse Ox 100% on R/A; kc6 10:50 Body Mass Index 31.47 (88.45 kg, 167.64 cm) ll1 10:50 Pain Scale: Adult ll1 NIH Stroke Scale Scores: 10:50 NIHSS Score: 2 ec2 11:07 NIHSS Score: 1 kc6 MDM: 10:44 Medical Screening Exam initiated ec2 10:52 Data reviewed: vital signs, nurses notes. ED course: Patient arrives today with right ec2 upper extremity complaints. Examination yields deficit on the right upper extremity. NIH of 2. I activated the stroke alert, patient is outside TNK window given onset approximately 11 hours prior to arrival.. 11:10 ED course: Discussed with radiology, negative CT scan of the head.. ec2 11:30 ED course: EKG independently reviewed and interpreted by me, shows normal sinus rhythm, ec2 rate of 87, no acute ST segment elevations, intervals are nonactionable.. 12:08 ED course: CT angios are negative. Lab work is nonactionable. Will admit for further ec2 stroke workup. Discussed with hospitalist, pending admission.. 03/23 10:50 Order name: Basic Metabolic Panel; Complete Time: 12:06 ec2 03/23 10:50 Order name: CBC with Diff; Complete Time: 11:33 ec2 03/23 10:50 Order name: High Sensitivity Troponin; Complete Time: 12:06 ec2 03/23 10:50 Order name: Protime (+inr); Complete Time: 11:46 ec2 03/23 10:50 Order name: Ptt, Activated; Complete Time: 11:46 ec2 03/23 11:31 Order name: CREATININE WHOLE BLOOD; Complete Time: 11:33 EDMS 03/23 13:57 Order name: CBC with Automated Diff EDMS 03/23 13:57 Order name: CBC with Automated Diff; Complete Time: 16:47 EDMS 03/23 13:57 Order name: Comprehensive Metabolic Panel EDMS 03/23 13:57 Order name: Comprehensive Metabolic Panel; Complete Time: 16:47 EDMS 03/23 13:57 Order name: Lipid Profile EDMS 03/23 13:57 Order name: Lipid Profile; Complete Time: 16:47 EDMS 03/23 10:50 Order name: CT Head Angio; Complete Time: 11:58 ec2 03/23 10:50 Order name: CT Neck Angio; Complete Time: 11:58 ec2 03/23 10:50 Order name: CT Stroke Brain w/o Contrast; Complete Time: 11:15 ec2 03/23 10:50 Order name: Stroke CXR 1 View; Complete Time: 11:58 ec2 03/23 13:44 Order name: Brain Wo Cont; Complete Time: 16:47 EDMS 03/23 13:57 Order name: Echo with Doppler EDMN 03/23 10:50 Order name: EKG; Complete Time: 10:50 ec2 03/23 13:57 Order name: Physical Therapy Consult EDMN 03/23 10:50 Order name: Accucheck; Complete Time: 11:29 ec2 03/23 10:50 Order name: Cardiac monitoring; Complete Time: 11:29 ec2 03/23 10:50 Order name: EKG - Nurse/Tech; Complete Time: 11:29 ec2 03/23 10:50 Order name: IV Saline Lock; Complete Time: 11:29 ec2 03/23 10:50 Order name: Labs collected and sent; Complete Time: 11:29 ec2 03/23 10:50 Order name: NPO; Complete Time: 11:29 ec2 03/23 10:50 Order name: O2 Per Protocol; Complete Time: 11:29 ec2 03/23 10:50 Order name: O2 Sat Monitoring; Complete Time: 11:30 ec2 03/23 10:50 Order name: Stroke Swallow Screen; Complete Time: 11:30 ec2 Administered Medications: No medications were administered Disposition Summary: 03/23/24 12:09 Hospitalization Ordered Notes: Hospitalization Status: Inpatient Admission ec2 Provider: Renita Ardon ec2 Condition: Stable ec2 Problem: new ec2 Symptoms: are unchanged ec2 Bed/Room Type: Standard ec2 Location: Telemetry/MedSurg (Inpatient)(03/23/24 16:58) ty Room Assignment: 205(03/23/24 16:58) ty Diagnosis - Right Upper Extremity Weakness ec2 Forms: - Medication Reconciliation Form ec2 - SBAR form ec2 - Leadership Thank You Letter ec2 NIH Stroke Scale - NIH Stroke Score Date: 03/23/2024 Time: 10:50 Total Score = 2 10. Dysarthria (speech clarity - read or repeat words) - 0(Normal) 11. Extinction and Inattention (visual/tactile/auditory/spatial/personal) - 0(No abnormality) 1a. Level of Consciousness (LOC) - 0(Alert) 1b. Level of Consciousness (LOC) (Month \T\ Age) - 0(Both) 1c. LOC Commands (Open \T\ Closes Eyes/Manager Customer) - 0(Both) 2. Best Gaze (Lateral Gaze Paresis) - 0(Normal) 3. Visual Field Loss - 0(No visual loss) 4. Facial Palsy - 0(Normal) 5a. Left Arm: Motor (10-second hold) - 0(No drift) 5b. Right Arm: Motor (10-second hold) - 1(Drift) 6a. Left Leg: Motor (5-second hold - always test supine) - 0(No drift) 6b. Right Leg: Motor (5-second hold - always test supine) - 0(No drift) 7. Limb Ataxia (finger/nose \T\ heel/sanderson - test with eyes open) - 1(Present in one limb) 8. Sensory Loss (pinprick arms/legs/face) - 0(Normal) 9. Best Language: Aphasia (description/naming/reading) - 0(No aphasia) Initials: ec2 NIH Stroke Scale - NIH Stroke Score Date: 03/23/2024 Time: 11:07 Total Score = 1 10. Dysarthria (speech clarity - read or repeat words) - 0(Normal) 11. Extinction and Inattention (visual/tactile/auditory/spatial/personal) - 0(No abnormality) 1a. Level of Consciousness (LOC) - 0(Alert) 1b. Level of Consciousness (LOC) (Month \T\ Age) - 0(Both) 1c. LOC Commands (Open \T\ Closes Eyes/Manager Customer) - 0(Both) 2. Best Gaze (Lateral Gaze Paresis) - 0(Normal) 3. Visual Field Loss - 0(No visual loss) 4. Facial Palsy - 0(Normal) 5a. Left Arm: Motor (10-second hold) - 0(No drift) 5b. Right Arm: Motor (10-second hold) - 1(Drift) 6a. Left Leg: Motor (5-second hold - always test supine) - 0(No drift) 6b. Right Leg: Motor (5-second hold - always test supine) - 0(No drift) 7. Limb Ataxia (finger/nose \T\ heel/sanderson - test with eyes open) - 0(Absent) 8. Sensory Loss (pinprick arms/legs/face) - 0(Normal) 9. Best Language: Aphasia (description/naming/reading) - 0(No aphasia) Initials: kc6 Signatures: Dispatcher [employer] EDMS Lucila Barriga RN RN ll1 Whitney Kern RN RN kc6 Luzma Galeano RN RN kb3 Saad Martell MD MD ec2 Kevin Berry ty Corrections: (The following items were deleted from the chart) 14:17 12:09 Telemetry/MedSurg (Inpatient) ec2 kb3 14:17 12:09 ec2 kb3 16:58 14:17 [facility] ER HOLD kb3 ty 16:58 14:17 ERHOLD- kb3 ty
--- NOTE | 2024-03-23 14:01 | P.HP ---
Certification for Inpatient Patient admitted to: Observation With expected LOS: <2 Midnights Patient will require the following post-hospital care: None Practitioner: I am a practitioner with admitting privileges, knowledge of patient current condition, hospital course, and medical plan of care. Services: Services provided to patient in accordance with Admission requirements found in Title 42 Section 412.3 of the Code of Federal Regulations Patient History Date of Service: 03/23/24 Reason for admission: Stroke History of Present Illness: Mr. Victoria is a 63yo male with a PMH of HTN, HLD, and GERD who presented to the ED post awaking with right arm weakness. He is alert, oriented, and hemodynamically stable. CT and lab results not alarming. Neuro exam significant only for right arm weakness and incoordination. We will admit him for further evaluation with MRI. Allergies No Known Allergies Allergy (Verified 01/09/21 13:47) Home medications list reviewed: Yes Home Medications: Aspirin [Aspirin EC 81 MG] 81 mg PO DAILY 01/09/21 Atorvastatin Calcium [Lipitor] 40 mg PO BEDTIME 01/09/21 Calcium Carbonate/Vitamin D3 [Calcium 500-Vit D3 200 Tablet] 1 each PO DAILY 01/09/21 Levocetirizine Dihydrochloride [Xyzal] 5 mg PO DAILY 01/09/21 Losartan/Hydrochlorothiazide [Losartan-Hctz 50-12.5 mg Tab] 1 each PO DAILY 01/09/21 Niacin 1,000 mg PO DAILY 01/09/21 Pantoprazole Sodium [Protonix] 20 mg PO DAILY 01/09/21 Tamsulosin HCl [Flomax] 0.4 mg PO DAILY 01/09/21 - Past Medical/Surgical History Has patient received pneumonia vaccine in the past: No Diabetic: No -: HTN -: HLD -: GERD -: Corneal replacement bilat Psychosocial/ Personal History: Lives at home with his . Sees Dr. Carmona. - Family History Father -: Heart disease, Hypertension - Social History Smoking Status: Former smoker Alcohol use: Yes CD- Drugs: No Caffeine use: Yes Place of Residence: Home Review of Systems 10-point ROS is otherwise unremarkable General: Weakness (right arm only) Eyes: Unremarkable ENT: Unremarkable Respiratory: Unremarkable Cardiovascular: Unremarkable Gastrointestinal: Unremarkable Genitourinary: Unremarkable Musculoskeletal: Unremarkable Integumentary: Unremarkable Neurological: Incoordination (of right arm) Lymphatics: Unremarkable Physical Examination - Physical Exam General: Alert, In no apparent distress, Oriented x3 HEENT: Atraumatic, Normocephalic Neck: Supple, 2+ carotid pulse no bruit Respiratory: Clear to auscultation bilaterally, Normal air movement Cardiovascular: Normal pulses, Regular rate/rhythm, Normal S1 S2 Capillary refill: <2 Seconds Gastrointestinal: Normal bowel sounds, Soft and benign Musculoskeletal: No clubbing, No swelling Integumentary: No rashes Neurological: Normal speech, Normal tone, Normal affect, Other (incoordination) Lymphatics: No axilla or inguinal lymphadenopathy External genitalia: Deferred Rectal: Deferred - Studies Laboratory Data (last 24 hrs) 03/23/24 03/23/24 03/23/24 11:18 11:18 11:18 WBC 8.10 Hgb 16.0 Hct 45.8 Plt Count 224 PT 10.6 INR 1.01 APTT 21.9 L Sodium 140 Potassium 4.2 BUN 14 Creatinine 1.25 Glucose 124 H Assessment and Plan - Plan Acute right arm weakness/CVA continue statin continue asa daily continue current Losartan/HCTZ Folic acid MRI stroke protocol ECHO Neuro checks q4h NIHSS q shift NIHSS 2 for right arm weakness and incoordination HTN/HLD as above, continue home meds Niacin GERD Protonix VTE/GI prophylaxis Discharge Plan: Home Plan to discharge in: 24 Hours - Advance Directives Does patient have a Living Will: No Does patient have a Durable POA for Healthcare: No - Code Status/Comfort Care Code Status Assessed: Yes (Full)
[2024-03-23] MEDS ORDERED: HYDRALAZINE HCL 20 MG/ML VIAL IV PRN (14:12)
[2024-03-23] MEDS ORDERED: LORazepam 2 MG/ML VIAL ONE (14:54)
[2024-03-23] MEDS: LORazepam 2 MG/ML VIAL IV ONE (15:00)
[2024-03-23 18:25] VITALS: O2SAT 100
[2024-03-23 20:00] VITALS: BMI 31.1
[2024-03-23] MEDS: ATORVASTATIN 40 MG TAB PO SCH (20:06)
[2024-03-23] MEDS: NIACIN 500 MG SR TAB PO SCH (20:06)
[2024-03-23] MEDS: NA CHLORIDE 0.9% 1,000 ML IV SCH (20:10)
--- NOTE | 2024-03-23 20:27 | RAD REPORT ---
EXAMINATION: MRI BRAIN WITHOUT CONTRAST CLINICAL INDICATION: Male, 63 years old.[facility] stroke eval TECHNIQUE: Multiplanar multisequence MR images of the brain were obtained without intravenous contras t. Unless otherwise specified, incidental findings do not require dedicated imaging follow-up. COMPARISON: Head CT and CT angiogram of earlier the same day. FINDINGS: INTRACRANIAL: Midline structures are unremarkable. Diffusion-weighted images show a focus of diffusi on restriction with mild corresponding T2/FLAIR hyperintensity centered on the left precentral gyrus and underlying deep white matter. No findings to suggest intracranial hemorrhage. Linear subepe ndymal focus of near fluid signal along the body of the left lateral ventricle, may reflect a small remote infarct. There is mild brain atrophy. No hydrocephalus. Other mild T2/FLAIR hyperintensities in the periventricular and deep white matter regions, likely rep resenting chronic microvascular ischemic changes. There is no mass effect or midline shift. No abnormal extraaxial fluid collection. VASCULATURE: Normal signal voids in the larger intracranial arteries and dural venous sinuses. SINUSES: The paranasal sinuses and mastoid air cells are predominantly clear. BONE: The marrow signal pattern is within normal limits. IMPRESSION: Left cortical and subcortical focus of diffusion restriction with mild corresponding T2/FLAIR hyperin tensity, centered on the left precentral gyrus, suggesting an acute to subacute infarct. Other findings as above. THIS REPORT CONTAINS FINDINGS THAT MAY BE CRITICAL TO PATIENT CARE. The findings were verbally commun icated via telephone to KERLINE Matthew on 03/23/2024 8:22 PM.
[2024-03-24 05:12] LABS: Absolute Basophils 0.1 K/uL (0-0.5); Absolute Eosinophils 0.4 K/uL (0-0.5); Absolute Lymphocytes (CBC) 1.8 K/uL (0.7-4.9); Absolute Monocytes 0.7 K/uL (0.1-1.3); Basophils % 0.7 % (0-1.3); Eosinophils % 4.4 % (0-4.4); Hematocrit 43.2 % (39.6-49.0); Hemoglobin 15.1 g/dL (13.6-17.9); Lymphocytes % 22.7 % (15.3-44.8); MCH 30.5 pg (27.0-35.0); MCHC 34.9 g/dL (32.0-36.0); MCV 87.3 fL (80-100); MPV 7.6 fL (7.6-11.3); Monocytes % 9.4 % (3.3-12.3); Neutrophils % 62.8 % (41.7-73.7); Platelets 213 thou/uL (152-406); RBC Red Blood Cell Count 4.94 M/uL (4.33-5.43); Red Cell Distribution Width 13.3 % (12.1-15.2)
[2024-03-24 05:40] LABS: Albumin 3.7 g/dL (3.4-5.0); Albumin/Globulin Ratio 1.1 (1.1-1.8); Anion Gap 8.6 mEq/L (5.0-15.0); Bilirubin Total 0.5 mg/dL (0.2-1.0); Globulin 3.5 g/dL (2.3-3.5); Potassium 3.6 mEq/L (3.5-5.1); Protein, Total 7.2 g/dL (6.4-8.2)
[2024-03-24] MEDS: PANTOPRAZOLE 40MG TABLET PO SCH (05:52)
[2024-03-24] MEDS ORDERED: LOSARTAN/HCTZ 50-12.5 PO SCH (09:00)
[2024-03-24] MEDS: ASPIRIN EC 81 MG TAB PO SCH (09:26)
[2024-03-24] MEDS: FOLIC ACID 1 MG TABLET PO SCH (09:26)
[2024-03-24] MEDS: ENOXAPARIN 40 MG/0.4 ML SQ SCH (09:26)
--- NOTE | 2024-03-24 13:35 | P.DS ---
Admission Date: 03/23/24 Discharge Date: 03/24/24 Disposition: ROUTINE DISCHARGE Discharge Condition: GOOD Reason for Admission: Stroke Consultations: Physical Therapy Brief History of Present Illness: Mr. Victoria is a 63yo male with a PMH of HTN, HLD, and GERD who presented to the ED post awaking with right arm weakness. He is alert, oriented, and hemodynamically stable. CT and lab results not alarming. Neuro exam significant only for right arm weakness and incoordination. We will admit him for further evaluation with MRI. Hospital Course: MRI performed shows, "left cortical and subcortical focus of diffusion restriction with mild corresponding T2/FLAIR hyperintensity. Centered on the left precentral gyrus, suggesting an acute to subacute infarct". Mr. Victoria is doing well this morning. His right arm strength is a little improved over yesterday. He still exhibits some incoordination. He will have PT evaluation and recommendations today and an ECHO to complete this hospitalization. He needs to follow up with Neurology as an outpatient as soon as possible. He should continue his current medications and we will augment those. New rx/dosing Aspirin 162mg po daily until follow up with neurology Atorvastatin 80mg po nightly until follow up with neurology and may scale back down to 40mg daily Folic acid 1mg po daily continue protonix and niacin as per usual Vital Signs/Physical Exam: Temp Pulse Resp BP Pulse Ox 98.1 F 81 12 139/93 H 96 03/24/24 12:00 03/24/24 12:00 03/24/24 12:00 03/24/24 12:00 03/24/24 12:00 General: Alert, In no apparent distress, Oriented x3 HEENT: Atraumatic, Normocephalic, PERRLA Neck: Supple, 2+ carotid pulse no bruit Respiratory: Clear to auscultation bilaterally, Normal air movement Cardiovascular: No edema, Normal pulses, Regular rate/rhythm, Normal S1 S2 Capillary refill: <2 Seconds Gastrointestinal: Normal bowel sounds, Soft and benign Musculoskeletal: No clubbing, No swelling Integumentary: No rashes Neurological: Other (right arm with improved strength, continued mild incoordination) Lymphatics: No axilla or inguinal lymphadenopathy External genitalia: Deferred Rectal: Deferred Laboratory Data at Discharge: WBC 8.00 thou/uL (4.3-10.9) 03/24/24 04:49 Hgb 15.1 g/dL (13.6-17.9) 03/24/24 04:49 Hct 43.2 % (39.6-49.0) 03/24/24 04:49 Plt Count 213 thou/uL (152-406) 03/24/24 04:49 PT 10.6 SECONDS (9.4-12.5) 03/23/24 11:18 INR 1.01 03/23/24 11:18 APTT 21.9 SECONDS (24.3-36.9) L 03/23/24 11:18 Sodium 138 mEq/L (136-145) 03/24/24 04:49 Potassium 3.6 mEq/L (3.5-5.1) D 03/24/24 04:49 BUN 14 mg/dL (7-18) 03/24/24 04:49 Creatinine 1.26 mg/dL (0.70-1.30) 03/24/24 04:49 Glucose 111 mg/dL (74-106) H 03/24/24 04:49 Total Bilirubin 0.5 mg/dL (0.2-1.0) 03/24/24 04:49 AST 28 U/L (15-37) 03/24/24 04:49 ALT 52 U/L (16-61) 03/24/24 04:49 Alkaline Phosphatase 71 U/L (45-117) 03/24/24 04:49 Triglycerides 232 mg/dL (<150) H 03/24/24 04:49 Cholesterol 116 mg/dL (<200) 03/24/24 04:49 HDL Cholesterol 30 mg/dL (40-60) L 03/24/24 04:49 Cholesterol/HDL Ratio 3.87 03/24/24 04:49 Home Medications: Calcium Carbonate/Vitamin D3 [Calcium 500-Vit D3 200 Tablet] 1 each PO DAILY 01/09/21 Levocetirizine Dihydrochloride [Xyzal] 5 mg PO DAILY 01/09/21 Losartan/Hydrochlorothiazide [Losartan-Hctz 50-12.5 mg Tab] 1 each PO DAILY 01/09/21 Niacin 1,000 mg PO DAILY 01/09/21 Pantoprazole Sodium [Protonix] 40 mg PO DAILY 01/09/21 Aspirin [Aspirin EC 81 MG] 162 mg PO DAILY #1 bottle 03/24/24 Atorvastatin Calcium [Lipitor] 80 mg PO BEDTIME #90 tab 03/24/24 New Medications: Aspirin [Aspirin EC 81 MG] 162 mg PO DAILY #1 bottle Atorvastatin Calcium [Lipitor] 80 mg PO BEDTIME #90 tab Diet: AHA Activity: Ad alesia Followup: Patrick Carmona MD [Primary Care Provider] - Nino Da Silva MD [ASSOCIATE-ACTIVE - CAN ADMIT] - Rivera Barrera MD [ACTIVE - CAN ADMIT] -
[2024-03-24 17:08] VITALS: BP 140/86; TEMP 98.3
--- NOTE | 2024-03-27 07:16 | ECHO ---
HEIGHT: 5 ft 6 in WEIGHT: 192 lb 12.8 oz DATE OF STUDY: 03/24/[address]: Roro Quiñones BLACKJACK PIT BOSS-BC 2-DIMENSIONAL: YES M.MODE: YES DOPPLER: YES COLOR FLOW: YES TDS: YES PORTABLE: YES DEFINITY: BUBBLE STUDY: DIAGNOSIS: STROKE CARDIAC HISTORY: CATHERIZATION: NO SURGERY: NO PROSTHETIC VALVE: NO PACEMAKER: NO MEASUREMENTS (cm) DIASTOLIC (NORMALS) SYSTOLIC (NORMALS) IVSd (0.6-1.2) LA Diam (1.9-4.0) LVEF LVIDd (3.5-5.7) LVIDs (2.0-3.5) %FS LVPWd (0.6-1.2) Ao Diam (2.0-3.7) 2 DIMENSIONAL ASSESSMENT: RIGHT ATRIUM: NORMAL LEFT ATRIUM: NORMAL RIGHT VENTRICLE: NORMAL LEFT VENTRICLE: NORMAL TRICUSPID VALVE: NORMAL MITRAL VALVE: NORMAL PULMONIC VALVE: NOT SEEN AORTIC VALVE: NORMAL PERICARDIAL EFFUSION: NONE AORTIC ROOT: NORMAL LEFT VENTRICULAR WALL MOTION: NORMAL DOPPLER/COLOR FLOW: NOT EVALUATED COMMENTS: 1. TECHNICALLY DIFFICULT STUDY WITH POOR IMAGES 2. OVERALL LEFT VENTRICULAR FUNCTION LOOKS NORMAL, EJECTION FRACTION 60% NORMAL WALL MOTION. TECHNOLOGIST: GEOFFREY GORDON
== END 2024-03-24 18:19 | disposition home or self-care (01) | DRG 66 ==
LOC: ER 10:43 → ERHOLD 13:42 → 2ND 18:21
PROVIDERS: ADMIT Internal Medicine; ATTEND Internal Medicine
DX: I63.9 Cerebral infarction, unspecified (principal); I10 Essential (primary) hypertension; K21.9 Gastro-esophageal reflux disease without esophagitis; E78.00 Pure hypercholesterolemia, unspecified; G83.21 Monoplegia of upper limb affecting right dominant side; R29.702 NIHSS score 2; Z79.82 Long term (current) use of aspirin; Z79.899 Other long term (current) drug therapy; Z87.891 Personal history of nicotine dependence
CPT/HCPCS: 36415; 70450; 70496; 70498; 70551; 71045; 80048; 80053; 80061; 82565; 84484; 85025; 85610; 85730; 93005; 93306; 97112; 97161; 99285; J1650; J7030; Q9967